=== PATIENT | male | born 1955 | race Caucasian/White ===

== ENCOUNTER 2018-03-31 21:56 | Emergency (ER) | payer OTHER ==
[~2018-03-31] VITALS: Ht 175.3 cm; Wt 75.9 kg
[2018-03-31] MEDS ORDERED: METOPROLOL TART50 MG PO (22:16)
[2018-03-31] MEDS ORDERED: LISINOPRIL2.5 MG PO (22:17)
[2018-03-31] MEDS ORDERED: PROAIR HFA IN (22:17)
[2018-03-31] MEDS ORDERED: PRADAXA150 MG PO (22:18)
[2018-03-31] MEDS ORDERED: SYMBICORT1 AE1 IN (22:18)
[2018-03-31] MEDS ORDERED: LIPITOR20 MG PO (22:18)
[2018-03-31] MEDS ORDERED: NORCO1 TA1 PO (22:19)
[2018-03-31 22:38] LABS: HEMATOCRIT 42.5 % (39.0-50.0); IMMATURE GRANULOCYTES 0.5 % (0.0-5.0); MEAN CELL VOLUME 93.4 fL CALC (80.0-100.0); MEAN CORPUSCULAR HGB 32.1 pG CALC (26.0-32.0); MEAN CORPUSCULAR HGB CONC 34.4 g/L CALC (32.0-36.0); NEUT# 7.16 thou/uL (1.82-7.42); RED BLOOD COUNT 4.55 mill/uL (4.70-6.10); RED CELL DISTRI WIDTH 13.4 % (11.5-15.5)
[2018-03-31 22:42] LABS: HEMOGLOBIN 14.6 g/dl (14.0-18.0)
[2018-03-31] MEDS ORDERED: PREDNISONE10 MG PO (23:37)
[2018-04-01 00:15] VITALS: BP 99/66
== END 2018-04-01 00:15 | disposition home or self-care (01) | DRG 192 ==
LOC: ED 21:56
PROVIDERS: Family Medicine
DX: J44.1 Chronic obstructive pulmonary disease with (acute) exacerbation (principal); F17.210 Nicotine dependence, cigarettes, uncomplicated; I48.91 Unspecified atrial fibrillation; R06.02 Shortness of breath
CPT/HCPCS: J2060

== ENCOUNTER 2018-04-07 21:08 | Emergency (ER) | payer OTHER ==
[~2018-04-07] VITALS: Ht 175.3 cm; Wt 71.0 kg
[~2018-04-07 21:08] MED LIST: LIPITOR20 MG PO; LISINOPRIL2.5 MG PO; METOPROLOL TART50 MG PO; NORCO1 TA1 PO; PRADAXA150 MG PO; PREDNISONE10 MG PO; PROAIR HFA IN; SYMBICORT1 AE1 IN
[2018-04-08 00:26] VITALS: BP 128/66
== END 2018-04-08 00:31 | disposition home or self-care (01) | DRG 880 ==
LOC: ED 21:08
DX: F41.0 Panic disorder [episodic paroxysmal anxiety] (principal); J44.9 Chronic obstructive pulmonary disease, unspecified; I48.91 Unspecified atrial fibrillation; I10 Essential (primary) hypertension; F17.210 Nicotine dependence, cigarettes, uncomplicated; Z79.02 Long term (current) use of antithrombotics/antiplatelets

== ENCOUNTER 2019-03-25 09:56 | Emergency (ER) | payer OTHER ==
[~2019-03-25] VITALS: Ht 175.3 cm; Wt 70.0 kg
[2019-03-25] MEDS ORDERED: TORADOL PO (10:41)
[2019-03-25] MEDS ORDERED: MEDDOSEPAK PO (10:41)
[2019-03-25] MEDS ORDERED: VITAMIN D1000 UNI2 PO (10:58)
[2019-03-25 11:23] VITALS: BP 147/89
== END 2019-03-25 11:23 | disposition home or self-care (01) | DRG 93 ==
LOC: ED 09:56
DX: G89.29 Other chronic pain (principal); M25.511 Pain in right shoulder; X50.0XXA Overexertion from strenuous movement or load, initial encounter; Y93.E9 Activity, other interior property and clothing maintenance; Y92.009 Unspecified place in unspecified non-institutional (private) residence as the place of occurrence of the external cause

== ENCOUNTER 2019-06-24 10:00 | Emergency (ER) | payer OTHER ==
[~2019-06-24] VITALS: Ht 175.3 cm; Wt 73.0 kg
[~2019-06-24 10:00] MED LIST changes: +MEDDOSEPAK PO; +TORADOL PO; +VITAMIN D1000 UNI2 PO
[2019-06-24] MEDS ORDERED: CYCLOBENZAPR5 MG PO (10:58)
[2019-06-24 11:15] VITALS: BP 148/88
== END 2019-06-24 11:15 | disposition home or self-care (01) | DRG 552 ==
LOC: ED 10:00
DX: M54.5 Low back pain (principal); I10 Essential (primary) hypertension; J44.9 Chronic obstructive pulmonary disease, unspecified; I48.91 Unspecified atrial fibrillation; F17.210 Nicotine dependence, cigarettes, uncomplicated

== ENCOUNTER 2019-07-05 06:28 | Emergency (ER) | payer OTHER ==
[~2019-07-05] VITALS: Ht 175.3 cm; Wt 73.0 kg
[~2019-07-05 06:28] MED LIST changes: +CYCLOBENZAPR5 MG PO
[2019-07-05] MEDS ORDERED: STERAPRED DS10 MG PO (07:00)
[2019-07-05] MEDS ORDERED: TRAMADOL HCL50 MG PO (07:00)
[2019-07-05 07:18] VITALS: BP 138/89
== END 2019-07-05 07:18 | disposition home or self-care (01) | DRG 552 ==
LOC: ED 06:28
DX: M54.16 Radiculopathy, lumbar region (principal); I10 Essential (primary) hypertension; J44.9 Chronic obstructive pulmonary disease, unspecified; I48.91 Unspecified atrial fibrillation; F17.210 Nicotine dependence, cigarettes, uncomplicated

== ENCOUNTER 2019-11-11 | Emergency (ER) | payer OTHER ==
[~2019-11-11] MED LIST changes: +STERAPRED DS10 MG PO; +TRAMADOL HCL50 MG PO
[2019-11-11] MEDS ORDERED: PREDNISONE50 MG PO (07:24)
== END 2019-11-11 07:41 | disposition home or self-care (01) | DRG 552 ==
DX: M54.42 Lumbago with sciatica, left side (principal); I10 Essential (primary) hypertension; J44.9 Chronic obstructive pulmonary disease, unspecified; I48.91 Unspecified atrial fibrillation; F17.210 Nicotine dependence, cigarettes, uncomplicated

== ENCOUNTER 2019-11-13 | Emergency (ER) | payer OTHER ==
[~2019-11-13] MED LIST changes: +PREDNISONE50 MG PO
[2019-11-13 12:18] LABS: HEMOGLOBIN 15.7 g/dl (14.0-18.0); IMMATURE GRANULOCYTES 0.5 % (0.0-5.0); MEAN CELL VOLUME 92.7 fL CALC (80.0-100.0); MEAN CORPUSCULAR HGB CONC 33.4 g/L CALC (32.0-36.0); NEUT# 13.21 thou/uL (1.82-7.42); RED BLOOD COUNT 5.07 mill/uL (4.70-6.10); RED CELL DISTRI WIDTH 13.1 % (11.5-15.5)
[2019-11-13 12:39] LABS: ALBUMIN 4.7 g/dL (3.2-5.0); ALKALINE PHOSPHATASE 83 u/l (38-126); ANION GAP 15 (6-22 (CALC)); BUN 18 mg/dL (8-23); BUN/CREATININE RATIO 29 (12-20 (CALC)); CARBON DIOXIDE 26 mmol/l (22-30); CHLORIDE 102 mmol/l (95-108); CREATININE 0.6 mg/dL (0.7-1.3); GFR > 60 ML/MIN (>=60 (CALC)); GFR FOR AFR.AMER. > 60 ML/MIN (>=60 (CALC)); POTASSIUM 4.5 mmol/l (3.5-5.1); SGOT/AST 54 u/l (19-48); SODIUM 137 mmol/l (137-146); TOTAL PROTEIN 7.7 g/dL (6.3-8.2)
[2019-11-13] MEDS ORDERED: DOXYCYCL HYC100 MG PO (12:59)
[2019-11-13] MEDS ORDERED: PREDNISONE50 MG PO (12:59)
== END 2019-11-13 13:28 | disposition home or self-care (01) | DRG 202 ==
PROVIDERS: Family Medicine
DX: J20.9 Acute bronchitis, unspecified (principal); J44.0 Chronic obstructive pulmonary disease with (acute) lower respiratory infection; I10 Essential (primary) hypertension; I48.91 Unspecified atrial fibrillation; F17.210 Nicotine dependence, cigarettes, uncomplicated

== ENCOUNTER 2021-02-20 02:21 | Emergency (ER) | payer OTHER, MEDICARE ==
[~2021-02-20] VITALS: Ht 175.3 cm; Wt 72.0 kg
[~2021-02-20 02:21] MED LIST changes: +DOXYCYCL HYC100 MG PO
[2021-02-20 04:17] VITALS: BP 118/65
== END 2021-02-20 04:17 | disposition home or self-care (01) | DRG 192 ==
LOC: ED 02:21
DX: J44.9 Chronic obstructive pulmonary disease, unspecified (principal); F41.9 Anxiety disorder, unspecified; I10 Essential (primary) hypertension; I48.91 Unspecified atrial fibrillation; F17.200 Nicotine dependence, unspecified, uncomplicated

== ENCOUNTER 2021-03-19 01:26 | Emergency (ER) | payer OTHER, MEDICARE ==
[~2021-03-19] VITALS: Ht 175.3 cm; Wt 73.0 kg
[2021-03-19] MEDS ORDERED: PROVENTIL HFA IN (02:58)
[2021-03-19 03:02] VITALS: BP 136/84
== END 2021-03-19 03:10 | disposition home or self-care (01) | DRG 192 ==
LOC: ED 01:26
DX: J44.9 Chronic obstructive pulmonary disease, unspecified (principal); F41.9 Anxiety disorder, unspecified; I10 Essential (primary) hypertension; I48.91 Unspecified atrial fibrillation; F17.200 Nicotine dependence, unspecified, uncomplicated